=== PATIENT | male | born 1975 | race Native Hawaiian/Other Pacific Islander ===

== ENCOUNTER 2022-10-25 07:35 | Emergency (ER) | payer OTHER ==
[~2022-10-25] VITALS: Ht 188 cm; Wt 82.6 kg
[2022-10-25 07:49] VITALS: TEMP 98.1
[2022-10-25] MEDS ORDERED: HYDROXYZINE HYD25 MG PO (07:52)
[2022-10-25] MEDS ORDERED: CLONIDINE HYDR0.2 MG PO (07:52)
[2022-10-25] MEDS ORDERED: B121000 MCG PO (07:53)
[2022-10-25] MEDS ORDERED: SIMV20TA2 PO (07:53)
[2022-10-25] MEDS ORDERED: SLEEP PO (07:55)
[2022-10-25] MEDS ORDERED: MAGNESIUM250 M1 PO (07:55)
[2022-10-25] MEDS ORDERED: MELATONIN3 M1 PO (07:56)
[2022-10-25] MEDS ORDERED: [UNRECOGNIZED DRUG - OTHER] PO (07:58)
[2022-10-25 08:45] LABS: PLATELET COUNT 313 K/uL (142-355)
[2022-10-25 10:00] VITALS: BP 130/76
== END 2022-10-25 10:00 | disposition home or self-care (01) ==
LOC: ED 07:35
PROVIDERS: Emergency Medicine
DX: F41.8 Other specified anxiety disorders (principal); G47.09 Other insomnia
CPT/HCPCS: 36415; 80053; 80307; 81000; 84443; 85027; 96372; 99283; J2060